=== PATIENT | male | born 1990 | race African-American/Black ===

== ENCOUNTER 2019-07-19 03:15 | Emergency (ER) | payer SELFPAY ==
[2019-07-19 03:20] VITALS: BP 126/78
[2019-07-19] MEDS ORDERED: Amoxicillin/Clavulanate TAB* 875 MG PO ONE (03:25)
[2019-07-19] MEDS ORDERED: HYDROcodone/ACETAMIN 5-325 MG* 1 TAB PO ONE (03:27)
[2019-07-19] MEDS ORDERED: Acetaminophen TAB* 325 MG PO ONE (03:27)
--- NOTE | 2019-07-19 03:28 | ED ---
Throat Pain/Nasal Congestion - HPI Summary HPI Summary: This pt is a 28 Y/O M presenting to [facility] with a CC of R ear pain that is muffled that has been present for the past 2 weeks. He states that the pain increased tonight for 10 minutes and is currently rated a 10/10 in severity. He states that he was at and used QTips but was told to stop using it. He states that he has been using olive oil and water with salt at home without good effect. He denies any fever, headaches, chills, SOB, N/V, and nasal congestion. He denies any PMHx that is pertinent. He has no alleviating factors. - History of Current Complaint Chief Complaint: EDEarPain Time Seen by Provider: 07/19/19 03:23 Hx Obtained From: Patient Onset/Duration: Sudden Onset, Lasting Weeks - 2, Still Present, Worse Since Severity: Severe Associated Signs And Symptoms: Positive: Negative - fever, headaches, chills, SOB, N/V, and nasal congestion.. Negative: Nasal Discharge Cough: None - Allergies/Home Medications Allergies/Adverse Reactions: Allergies Allergy/AdvReac Type Severity Reaction Status Date / Time No Known Allergies Allergy Verified 07/19/19 03:20 Home Medications: Home Medications Amoxicillin/Clavulanate TAB* [Augmentin TAB 875*] 875 mg PO BID 10 Days #19 tab 07/19/19 [Rx] Carbamide Peroxide 6.5% OTIC* [DEBROX 6.5% Otic*] 5 drop BOTH EARS TID #1 bottle 07/19/19 [Rx] PMH/Surg Hx/FS Hx/Imm Hx Previously Healthy: Yes Endocrine/Hematology History: Denies: Hx Diabetes Cardiovascular History: Denies: Hx Hypertension - Cancer History Hx Chemotherapy: No Hx Radiation Therapy: No - Surgical History Surgical History: None - Immunization History Immunizations Up to Date: Yes Infectious Disease History: No Infectious Disease History: Denies: Traveled Outside the [place] in Last 30 Days - Family History Known Family History: Negative: Cardiac Disease, Hypertension, Diabetes - Social History Occupation: Employed Full-time Lives: With Family Alcohol Use: None Hx Substance Use: No Substance Use Type: Reports: None Hx Tobacco Use: No Smoking Status (MU): Never Smoked Tobacco Review of Systems Negative: Fever, Chills Positive: Ear Ache. Negative: Nasal Discharge Negative: Shortness Of Breath Negative: Vomiting, Nausea Negative: Headache All Other Systems Reviewed And Are Negative: Yes Physical Exam - Summary Physical Exam Summary: Constitutional: Well-developed, Well-nourished, Alert. (-) Distressed Skin: Warm, Dry HENT: Normocephalic; Atraumatic, Canal is impacted and shows signs of infection , tenderness on pulling the pinnae, no tenderness on pulling the mastoid process. Eyes: Conjunctiva normal Neck: Musculoskeletal ROM normal neck. (-) JVD, (-) Stridor, (-) Tracheal deviation Cardio: Rhythm regular, rate normal, Heart sounds normal; Intact distal pulses; The pedal pulses are 2+ and symmetric. Radial pulses are 2+ and symmetric. Pulmonary/Chest wall: Effort normal. (-) Respiratory distress, (-) Wheezes, (-) Rales Abd: Soft, (-) tenderness, (-) Distension, (-) Guarding, (-) Rebound Musculoskeletal: (-) Edema Neuro: Alert, Oriented x3 Psych: Mood and affect Normal Triage Information Reviewed: Yes Vital Signs On Initial Exam: Initial Vitals Temp Pulse Resp BP Pulse Ox 98 F 69 16 126/78 97 07/19/19 03:18 07/19/19 03:18 07/19/19 03:18 07/19/19 03:18 07/19/19 03:18 Vital Signs Reviewed: Yes Procedures - Sedation Patient Received Moderate/Deep Sedation with Procedure: No Diagnostics - Vital Signs Vital Signs Temp Pulse Resp BP Pulse Ox 07/19/19 03:18 98 F 69 16 126/78 97 - Laboratory Lab Statement: Any lab studies that have been ordered have been reviewed, and results considered in the medical decision making process. EENT Course/Dx - Course Course Of Treatment: This pt is a 28 Y/O M presenting to [facility] with a CC of R ear pain that is muffled that has been present for the past 2 weeks. He states that the pain increased tonight for 10 minutes and is currently rated a 10/10 in severity. He states that he was at and used QTips but was told to stop using it. He states that he has been using olive oil and water with salt at home without good effect. His PE found that his Canal is impacted and shows signs of infection, tenderness on pulling the pinnae, no tenderness on pulling the mastoid process. He was given [place], Augmentin, and APAP during his ED course. He will be discharged home with a Dx of otitis media - Diagnoses Provider Diagnoses: Otitis media Discharge ED - Sign-Out/Discharge Documenting (check all that apply): Patient Departure - discharge - Discharge Plan Condition: Good Disposition: HOME Prescriptions: Amoxicillin/Clavulanate TAB* [Augmentin TAB 875*] 875 mg PO BID 10 Days #19 tab Carbamide Peroxide 6.5% OTIC* [DEBROX 6.5% Otic*] 5 drop BOTH EARS TID #1 bottle Patient Education Materials: Ear Infection (ED) Referrals: [facility] [Outside] - 3 Days Additional Instructions: PLEASE FOLLOW UP WITH THE [facility] IN 2-3 DAYS AND RETURN TO THE EMERGENCY DEPARTMENT FOR ANY NEW OR WORSENING SYMPTOMS. Take medications as prescribed and take them for the full duration. - Billing Disposition and Condition Condition: GOOD Disposition: Home - Attestation Statements Document Initiated by Scribe: Yes Documenting Scribe: Leonidas Patel Provider For Whom Dakotae is Documenting (Include Credential): Robert García MD Scribe Attestation: Leonidas Patel, scribed for Robert García MD on 07/19/19 at 0448. Scribe Documentation Reviewed: Yes Provider Attestation: The documentation as recorded by the Leonidas perera accurately reflects the service I personally performed and the decisions made by , Robert García MD Status of Scribe Document: Viewed
== END 2019-07-19 03:43 | disposition home or self-care (01) ==
LOC: ED 03:15
DX: H66.91 Otitis media, unspecified, right ear (principal)
CPT/HCPCS: 99282; A9270-GY